=== PATIENT | female | born 1960 | race Caucasian/White ===

== ENCOUNTER 2017-08-01 17:27 | Emergency (ER) | payer BC ==
[2017-08-01] MEDS ORDERED: IPRATROPIUM/ALBUTEROL 0.5-2.5 MG/3 ML AMPUL NEB ONE (17:55)
[2017-08-01] MEDS ORDERED: PREDNISONE 20 MG TABLET PO ONE (17:56)
--- NOTE | 2017-08-01 17:58 | ER Document Report ---
ED Medical Screen (RME) - General Chief Complaint: Breathing Difficulty Stated Complaint: SHORTNESS OF BREATH Time Seen by Provider: 08/01/17 17:35 Notes: RAPID MEDICAL EVALUATION DISCLOSURE I have seen this patient as part of a Rapid Medical Evaluation and, if applicable, placed any initially appropriate orders. The patient will be seen and fully evaluated, including a full history and physical exam, by a provider ( in Main ED or Fast Track) when a room becomes available. 57-year-old female here with complaints of cough ongoing for several weeks now productive of green sputum but progressively worsening. Over the past 1 day she has had shortness of breath and chest pressure "feels like an elephant is sitting on my chest". She has a history of pneumonia and believes she may have pneumonia again. She has not had an inhaler for about a year and therefore unable to use it. EXAM Unilateral left sided minimal wheezes Mildly decreased aeration TRAVEL OUTSIDE OF THE [place] IN LAST 30 DAYS: No Past Medical History - Social History Frequency of alcohol use: Occasional Drug Abuse: None Pulmonary Medical History: Reports: Hx Asthma, Hx Pneumonia Renal/ Medical History: Denies: Hx Peritoneal Dialysis Psychiatric Medical History: Reports: Hx Depression Past Surgical History: Reports: Hx Abdominal Surgery - for reflux Physical Exam - Vital signs Vitals: Temp Pulse Resp BP Pulse Ox 98.3 F 94 22 H 139/94 H 98 08/01/17 17:31 08/01/17 17:31 08/01/17 17:31 08/01/17 17:31 08/01/17 17:31 Course - Vital Signs Vital signs: Temp Pulse Resp BP Pulse Ox 98.3 F 94 22 H 139/94 H 98 08/01/17 17:31 08/01/17 17:31 08/01/17 17:31 08/01/17 17:31 08/01/17 17:31
[2017-08-01 18:29] LABS: ABSOLUTE LYMPHOCYTES (AUTO) 1.8 10^3/uL (0.5-4.7); ABSOLUTE MONOCYTES (AUTO) 0.5 10^3/uL (0.1-1.4); BASOPHILS % (AUTO) 0.5 % (0-2); EOSINOPHILS % (AUTO) 0.2 % (0-6); HEMATOCRIT 42.2 % (36.0-47.0); HEMOGLOBIN 14.4 g/dL (12.0-15.5); LYMPHOCYTES % (AUTO) 25.2 % (13-45); MEAN CORPUSCULAR HEMOGLOBIN 29.7 pg (27.0-33.4); MEAN CORPUSCULAR HGB CONC 34.1 g/dL (32.0-36.0); MEAN CORPUSCULAR VOLUME 87 fl (80-97); MONOCYTES % (AUTO) 6.4 % (3-13); PLATELET COUNT 218 10^3/uL (150-450); RED BLOOD COUNT 4.85 10^6/uL (3.72-5.28); RED CELL DISTRIBUTION WIDTH 13.7 % (11.5-14.0); SEGMENTED NEUTROPHILS % (AUTO) 67.7 % (42-78); TOTAL CELLS COUNTED % (AUTO) 100 %; WHITE BLOOD COUNT 7.3 10^3/uL (4.0-10.5)
[2017-08-01 18:51] LABS: ANION GAP 11 (5-19); BLOOD UREA NITROGEN 19 mg/dL (7-20); CALCIUM 9.9 mg/dL (8.4-10.2); CARBON DIOXIDE 27 mmol/L (22-30); CHLORIDE 107 mmol/L (98-107); GLUCOSE 103 mg/dL (75-110); POTASSIUM 4.2 mmol/L (3.6-5.0); SODIUM 145.3 mmol/L (137-145)
[2017-08-01] MEDS ORDERED: HYDROCODONE/ACETAMINOPHEN 5-325 MG TABLET PO ONE (19:32)
[2017-08-01] MEDS ORDERED: FAMOTIDINE 20 MG TABLET PO ONE (19:32)
[2017-08-01] MEDS ORDERED: PROMETHAZINE HCL 25 MG TABLET PO ONE (19:32)
--- NOTE | 2017-08-01 19:32 | ER Document Report ---
ED Respiratory Problem - General Chief Complaint: Breathing Difficulty Stated Complaint: SHORTNESS OF BREATH Time Seen by Provider: 08/01/17 17:35 Notes: Patient is a 57-year-old female that comes emergency department for chief complaint of congestion and cough, she states she is had a worsening cough for 2 -3 weeks now, she now has started coughing up green sputum and has felt more short of breath. She was seen by her primary care several days ago, started on Flonase and allergy medication. She does have a history of asthma, ran out of her albuterol at home, she has never smoked. She does report chest soreness and she did feel chest tightness with shortness of breath earlier, she denies fever. Only past medical history reported otherwise is pneumonia once and an undetermined procedure for reflux. She states that after taking the prednisone she started feeling nauseated and she retched. TRAVEL OUTSIDE OF THE [place] IN LAST 30 DAYS: No - Related Data Allergies/Adverse Reactions: adhesive tape Allergy (Verified 08/01/17 18:06) Past Medical History - General Information source: Patient - Social History Smoking Status: Never Smoker Frequency of alcohol use: Occasional Drug Abuse: None Lives with: Family Family History: Reviewed & Not Pertinent Patient has suicidal ideation: No Patient has homicidal ideation: No Pulmonary Medical History: Reports: Hx Asthma, Hx Pneumonia Renal/ Medical History: Denies: Hx Peritoneal Dialysis Psychiatric Medical History: Reports: Hx Depression Past Surgical History: Reports: Hx Abdominal Surgery - for reflux - Immunizations Immunizations up to date: Yes Hx Diphtheria, Pertussis, Tetanus Vaccination: Yes Review of Systems - Review of Systems Constitutional: See HPI EENT: No symptoms reported Cardiovascular: No symptoms reported Respiratory: See HPI Gastrointestinal: No symptoms reported Genitourinary: No symptoms reported Female Genitourinary: No symptoms reported Musculoskeletal: No symptoms reported Skin: No symptoms reported Hematologic/Lymphatic: No symptoms reported Neurological/Psychological: No symptoms reported Physical Exam - Vital signs Vitals: Temp Pulse Resp BP Pulse Ox 98.3 F 94 22 H 139/94 H 98 08/01/17 17:31 08/01/17 17:31 08/01/17 17:31 08/01/17 17:31 08/01/17 17:31 Interpretation: Normal - General General appearance: Other - Patient with occasional congested coughing episodes , otherwise she does not appear to be in any distress - HEENT Head: Normocephalic, Atraumatic Eyes: Normal Extraocular movements intact: Yes Eyelashes: Normal Pupils: PERRL Mouth/Lips: Normal Mucous membranes: Normal Pharynx: Normal Neck: Normal - Respiratory Respiratory status: No respiratory distress. No: Respiratory distress, Labored , Retractions, Tachypnea Breath sounds: Normal, Nonproductive cough - A few scattered coarse breath sounds with nonproductive cough which is congested. No: Decreased air movement , Wheezing Chest palpation: Normal - Cardiovascular Rhythm: Regular. No: Tachycardia Heart sounds: Normal auscultation, S1 appreciated, S2 appreciated Murmur: No Normal capillary refill: Yes - Abdominal Inspection: Normal Distension: No distension Bowel sounds: Normal Tenderness: Nontender Organomegaly: No organomegaly - Back Back: Normal, Nontender - Extremities General upper extremity: Normal inspection, Nontender, Normal color, Normal ROM , Normal temperature General lower extremity: Normal inspection, Nontender, Normal color, Normal ROM , Normal temperature, Normal weight bearing. No: Fernando's sign - Neurological Neuro grossly intact: Yes Cognition: Normal Orientation: AAOx4 [place] Coma Scale Eye Opening: Spontaneous Royce Coma Scale Verbal: Oriented [place] Coma Scale Motor: Obeys Commands [place] Coma Scale Total: 15 Speech: Normal Motor strength normal: LUE, RUE, LLE, RLE Sensory: Normal - Psychological Associated symptoms: Normal affect, Normal mood - Skin Skin Temperature: Warm Skin Moisture: Dry Skin Color: Normal Course - Re-evaluation Re-evalutation: Patient clarified to me that she did have a fever, she ran it earlier today for the first time, temperature of 101. No fever here. Chest x-ray shows large hiatal hernia but no consolidation. Remaining workup including CBC, CMP, EKG, troponin but no acute findings. Vital signs are unremarkable. Patient has deep congested cough and reported fever with also occasional sputum production. No hypoxia or respiratory distress, no tachycardia. Ambulates without difficulty. Based on patient's presentation, workup, examination I have low suspicion of ACS, PE, aortic dissection. Discussed hiatal hernia, patient requests treatment for this because she frequently has abdominal upset especially after eating, providing with Nexium. Patient will be covered for suspected underlying pneumonia, discussed medications, follow-up, return precautions with patient and , they state understanding and agreement with plan. - Vital Signs Vital signs: Temp Pulse Resp BP Pulse Ox 97.8 F 98 16 122/78 96 08/01/17 21:30 08/01/17 21:30 08/01/17 21:30 08/01/17 21:30 08/01/17 21:30 - Laboratory Result Diagrams: 08/01/17 18:06 08/01/17 18:06 Laboratory results interpreted by me: 08/01/17 18:06 Sodium 145.3 H Discharge - Discharge Clinical Impression: Productive cough, Wheezing, Hiatal hernia Condition: Stable Disposition: HOME, SELF-CARE Additional Instructions: Your examination and symptoms are consistent with a bronchitis and concerning for possible developing pneumonia. We are covering you with doxycycline. We have treated you with dexamethasone, use albuterol with spacer as prescribed as well. Use Tessalon for cough if needed. You have a large hiatal hernia on x- ray, I recommend the Nexium because of your ongoing gastrointestinal symptoms. Follow-up with your primary care provider within the next 2 or 3 days for reevaluation and additional management. Return for any concerning or worsening symptoms including difficulty breathing, passing out, spiking fever, vomiting, black stools, or any other concerning or worsening symptoms. Prescriptions: Benzonatate [Tessalon Perle 100 mg Capsule] 100 mg PO Q8HP PRN #30 cap PRN Reason: Albuterol Sulfate [Proair HFA Inhalation Aerosol 8.5 gm MDI] 2 puff IH Q4H PRN # 1 mdi PRN Reason: Doxycycline Hyclate 100 mg PO BID #14 capsule Esomeprazole Mag Trihydrate [Nexium] 40 mg PO DAILY #30 capsule.dr Forms: Return to Work Referrals: CHUCK BENJAMIN PA [Primary Care Provider] - Follow up as needed
--- NOTE | 2017-08-01 20:02 | RADIOLOGY REPORT (SQ) ---
EXAM DESCRIPTION: CHEST 2 VIEWS COMPLETED DATE/TIME: 08/01/2017 7:36 pm REASON FOR STUDY: L sided wheezes cough green sputum; pneumonia? COMPARISON: None. EXAM PARAMETERS: NUMBER OF VIEWS: two views TECHNIQUE: Digital Frontal and Lateral radiographic views of the chest acquired. RADIATION DOSE: NA LIMITATIONS: none FINDINGS: LUNGS AND PLEURA: No consolidation, pneumothorax or pleural effusion. MEDIASTINUM AND HILAR STRUCTURES: No masses or contour abnormalities. HEART AND VASCULAR STRUCTURES: Heart normal size. No evidence for failure. BONES: No acute findings. HARDWARE: None in the chest. OTHER: There is a large hiatal hernia. IMPRESSION: Large hiatal hernia. Otherwise, no acute radiographic finding in the chest. TECHNICAL DOCUMENTATION: JOB ID: [id number] [employer]- All Rights Reserved Reading location - IP/workstation name: [email or web address]
[2017-08-01] MEDS ORDERED: DEXAMETHASONE SOD PHOS INJ 10 MG/1 ML VIAL IM ONE (21:13)
[2017-08-01] MEDS ORDERED: DOXYCYCLINE HYCLATE 100 MG TABLET PO ONE (21:13)
[2017-08-01] MEDS ORDERED: ALBUTEROL SULFATE HFA (90 MCG/PUFF) 8 GM MDI (1 MDI/ER DISP) IH ONE (21:14)
[2017-08-01 21:31] VITALS: BP 122/78
--- NOTE | 2017-08-01 22:08 | EKG REPORT ---
SEVERITY:- NORMAL ECG - SINUS RHYTHM : Confirmed by: Derek George MD 01-Aug-2017 22:08:15
== END 2017-08-01 21:32 | disposition home or self-care (01) ==
LOC: ER 17:27
DX: R05 Cough (principal); R06.2 Wheezing; K44.9 Diaphragmatic hernia without obstruction or gangrene; R06.00 Dyspnea, unspecified
CPT/HCPCS: 93005; 99285; 96372; 36415; 87040; 85025; 80048; 84484; 71046; 93010; J7512; J1100; J3490; J7620

== ENCOUNTER 2019-04-12 21:16 | Emergency (ER) | payer BC ==
[2019-04-12] MEDS ORDERED: OXYCODONE-ACETAMINOPHEN 5-325 MG TABLET PO ONE (22:04)
--- NOTE | 2019-04-12 22:06 | ER Document Report ---
ED Medical Screen (RME) - General Chief Complaint: Fall Stated Complaint: FALL,RIGHT SIDE BODY PAIN AND BACK PAIN Time Seen by Provider: 04/12/19 21:59 Primary Care Provider: RICO RENO DO [Primary Care Provider] - Follow up as needed Notes: HPI: 58-year-old female presenting to the emergency department with multiple injuries from mechanical fall. Patient states that she had surgery on her left Achilles and ankle region and is still rehabbing and slipped coming out of her camper on the stairs. She rolled the ankle and complains of pain to the posterior left ankle. Patient also states that she landed back on the steps, complains of low back pain and also right rib pain. Denies abdominal pain nausea vomiting. States it hurts to take a deep breath and in the right ribs I have greeted and performed a rapid initial assessment of this patient. A comprehensive ED assessment and evaluation of the patient, analysis of test results and completion of the medical decision making process will be conducted by additional ED providers PHYSICAL EXAMINATION: GENERAL: Well-appearing, well-nourished and in mild acute distress. HEAD: Atraumatic, normocephalic. EYES: sclera anicteric, conjunctiva are normal. ENT: Moist mucous membranes. NECK: Normal range of motion LUNGS: Normal work of breathing, lung sounds clear to auscultation. No visible bruising on the right lateral chest wall. No crepitus. No flail. Mild tenderness through the right lateral rib cage region on palpation HEART: 2+ radial pulses bilaterally, regular rate and rhythm ABD: limited by positioning for exam in triage. No abdominal pain in the right upper quadrant right flank on palpation BACK: Mild tenderness in the lower lumbar back on palpation without palpable step-off EXTREMITIES: no pitting or edema. No cyanosis. NEUROLOGICAL: No focal neurological deficits. Moves all extremities spontaneously and on command. PSYCH: Normal mood, normal affect. SKIN: Warm, Dry, normal turgor, no rashes or lesions noted. TRAVEL OUTSIDE OF THE [place] IN LAST 30 DAYS: No - Related Data Allergies/Adverse Reactions: adhesive tape Allergy (Verified 04/12/19 21:58) latex Allergy (Verified 04/12/19 21:58) Past Medical History - Social History Frequency of alcohol use: Social Pulmonary Medical History: Reports: Hx Asthma, Hx Pneumonia Renal/ Medical History: Denies: Hx Peritoneal Dialysis Psychiatric Medical History: Reports: Hx Depression Past Surgical History: Reports: Hx Abdominal Surgery - for reflux - Immunizations Immunizations up to date: Yes Hx Diphtheria, Pertussis, Tetanus Vaccination: Yes Physical Exam - Vital signs Vitals: Temp Pulse Resp BP Pulse Ox 97.9 F 87 16 141/81 H 98 04/12/19 21:30 04/12/19 21:30 04/12/19 21:30 04/12/19 21:30 04/12/19 21:30 Course - Vital Signs Vital signs: Temp Pulse Resp BP Pulse Ox 97.9 F 87 16 141/81 H 98 04/12/19 21:30 04/12/19 21:30 04/12/19 21:30 04/12/19 21:30 04/12/19 21:30 Doctor's Discharge - Discharge Referrals: RICO RENO DO [Primary Care Provider] - Follow up as needed
--- NOTE | 2019-04-12 23:22 | RADIOLOGY REPORT (SQ) ---
EXAM DESCRIPTION: XR RIBS UNILATERAL WITH CHEST COMPLETED DATE/TME: 04/12/2019 22:03 CLINICAL HISTORY: 58 years Female fall COMPARISON: None. FINDINGS: The cardiomediastinal silhouette appears unremarkable. No consolidating infiltrates or pleural effusions. No pneumothorax. Large hiatal hernia. Irregularity of the anterior fifth and sixth ribs suggesting fractures. No pleural thickening. IMPRESSION: Fractures of the anterior right fifth and sixth ribs without pneumothorax Large hiatal hernia
--- NOTE | 2019-04-12 23:24 | RADIOLOGY REPORT (SQ) ---
EXAM DESCRIPTION: XR LUMBAR SPINE ANTEROPOSTERIOR, LATERAL, AND OBLIQUES COMPLETED DATE/TME: 04/12/2019 22:04 CLINICAL HISTORY: 58 years, Female, fall COMPARISON: None. NUMBER OF VIEWS: 5 TECHNIQUE: 5 view lumbar spine LIMITATIONS: None. FINDINGS: Osteopenia. Vertebral body height and alignment is preserved. There are no pars defects. Mild facet arthropathy L3-4, L4-5, L5-S1. Mild degenerative change of the sacroiliac joints IMPRESSION: Osteopenia. Mild degenerative change copyright 2010 [employer]- All Rights Reserved
--- NOTE | 2019-04-12 23:26 | RADIOLOGY REPORT (SQ) ---
EXAM DESCRIPTION: Three views of the left ankle CLINICAL HISTORY: 58 years Female, fall COMPARISON: None. FINDINGS: Alignment of the ankle is anatomic. No fracture is seen. No erosions or periostitis. There is postsurgical change seen along the dorsal aspect of the calcaneus. Soft tissues are prominent. IMPRESSION: No acute process
[2019-04-13] MEDS ORDERED: PROMETHAZINE HCL INJ 25 MG/1 ML VIAL IM ONE (00:12)
[2019-04-13] MEDS ORDERED: KETOROLAC TROMETHAMINE 60 MG/2 ML SDV IM ONE (00:33)
--- NOTE | 2019-04-13 01:16 | ER Document Report ---
ED General - General Chief Complaint: Fall Stated Complaint: FALL,RIGHT SIDE BODY PAIN AND BACK PAIN Time Seen by Provider: 04/12/19 21:59 Primary Care Provider: LEXUS WEAVER MD [ACTIVE PROVISIONAL STAFF] - Follow up as needed RICO RENO DO [Primary Care Provider] - Follow up as needed TRAVEL OUTSIDE OF THE [place] IN LAST 30 DAYS: No - HPI Notes: Ms. fofana is a 58-year-old female with a chief complaint of fall with multiple injuries. 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 She is continued to have quite a lot of trouble with this and has not been able to return to work. She is scheduled to see an orthopedist sometime in the next 3 months for reevaluation apparently there have been issues about Workmen's Comp. expressing unwillingness to provide further funding for this injury. Patient says she was with her two daughters this evening and they were eating pizza on disposable plates while sitting in a camper. She attempted to exit the camper to dispose of her plate when she lost her footing and twisted the affected left ankle and fell against some items which were outside the door the camper striking her right ribs and also falling onto her lower back area. There was no loss of consciousness. She denies neck pain. Symptoms at this time include severe right rib pain, left ankle pain and lower back pain. - Related Data Allergies/Adverse Reactions: adhesive tape Allergy (Verified 04/12/19 21:58) latex Allergy (Verified 04/12/19 21:58) Past Medical History - General Information source: Patient - Social History Smoking Status: Never Smoker Frequency of alcohol use: Social Family History: Reviewed & Not Pertinent Patient has suicidal ideation: No Patient has homicidal ideation: No Pulmonary Medical History: Reports: Hx Asthma, Hx Pneumonia Renal/ Medical History: Denies: Hx Peritoneal Dialysis Psychiatric Medical History: Reports: Hx Depression Past Surgical History: Reports: Hx Abdominal Surgery - for reflux - Immunizations Immunizations up to date: Yes Hx Diphtheria, Pertussis, Tetanus Vaccination: Yes Review of Systems - Review of Systems Notes: Constitutional: Negative for fever. HENT: Negative for sore throat. Eyes: Negative for visual changes. Cardiovascular: Negative for chest pain. Respiratory: Negative for shortness of breath. Gastrointestinal: Negative for abdominal pain, vomiting or diarrhea. Genitourinary: Negative for dysuria. Musculoskeletal: As per HPI. Skin: Negative for rash. Neurological: Negative for headaches, weakness or numbness. 10 point ROS negative except as marked above and in HPI. Physical Exam - Vital signs Vitals: Temp Pulse Resp BP Pulse Ox 97.9 F 87 16 141/81 H 98 04/12/19 21:30 04/12/19 21:30 04/12/19 21:30 04/12/19 21:30 04/12/19 21:30 - Notes Notes: GENERAL: Female patient approximately stated age who appears quite uncomfortable holding right rib area. She also has her left ankle propped up on a pillow. SKIN: Good turgor no rashes. HEAD: Normocephalic atraumatic. EYES: PERRLA. EOMI. Conjunctivae and sclerae clear. EARS: CANALS AND TMS CLEAR. NOSE: CLEAR. MOUTH: Moist mucosa. Good dentition. No stridor or edema. No drooling. NECK: Supple. No masses or thyromegaly. No adenopathy. Carotids 2+ without bruits. No JVD. BACK: Symmetrical with mild tenderness in lumbar area. No step-off or crepitus.. CHEST: Tender over lower posterior lateral rib area on the right. Respirations unlabored. Breath sounds clear and symmetrical. HEART: Regular rhythm. No murmur gallop or rub. ABDOMEN: Soft nontender without masses, organomegaly or rebound. Bowel sounds normally active. No bruits. GENITALIA: Deferred. EXTREMITIES: Patient has a healed surgical scar posteriorly over the left Achilles tendon. There is no palpable discontinuity. Davis test is normal. There is no obvious bony deformity or crepitus present and no visible ecchymoses. Mild soft tissue swelling posterior aspect of the ankle.. No calf tenderness. Cap refill less than 1.5 seconds. Dorsalis pedis and posterior tibial pulses 3+ and symmetrical. NEUROLOGICAL: GCS 15. Alert and oriented x3. Fluent speech. Cranial nerves II through XII intact. Sensorimotor and cerebellar normal. Normal tone. PSYCHIATRIC: Appropriate affect. Course - Re-evaluation Re-evalutation: 04/13/19 01:21 Patient received IM Toradol and oral Percocet and also some IM Phenergan. Ankle steerable applied on the left. I recommended that she get a walker tomorrow. Her daughters will transport her home tonight. We are going to refer her to orthopedist recreation manager for follow-up. - Vital Signs Vital signs: Temp Pulse Resp BP Pulse Ox 97.9 F 87 16 141/81 H 98 04/12/19 21:30 04/12/19 21:30 04/12/19 21:30 04/12/19 21:30 04/12/19 21:30 - Diagnostic Test Radiology reviewed: Reports reviewed - Radiologist reports fracture of right fifth and sixth ribs. No pneumothorax or hemothorax. Patient has a large hiatal hernia. She has osteoporotic changes of lumbar spine without fracture. There is no fracture left ankle. Discharge - Discharge Clinical Impression: Contusion low back Right rib fracture Qualifiers: Encounter type: initial encounter Rib fracture type: multiple ribs Fracture type: closed Qualified Code(s): S22.41XA - Multiple fractures of ribs, right side, initial encounter for closed fracture Sprain of ankle, left Qualifiers: Encounter type: initial encounter Involved ligament of ankle: unspecified ligament Qualified Code(s): S93.402A - Sprain of unspecified ligament of left ankle, initial encounter Fall Qualifiers: Encounter type: initial encounter Qualified Code(s): W19.XXXA - Unspecified fall, initial encounter Condition: Stable Disposition: HOME, SELF-CARE Instructions: Ice Packs ([facility]), Splint Precautions ([facility]), Sprained Ankle ([facility]) Additional Instructions: Rib Injuries and Fractures You have been diagnosed as having either bruised or broken ribs. These two injuries are treated in the same way. It will usually take four to six weeks for these injured ribs to heal. Sometimes, rib belts or anesthetic injections of the chest wall help reduce the pain. If you are using a rib belt, you should cough or take a deep breath at least every hour or two to prevent lung complications. You should not engage in any strenuous physical activity until released by your physician. The usual rule is "if it hurts, don't do it." Rib fractures can lead to serious lung complications including lung collapse, hemorrhage, and pneumonia. You should call the physician or return at once if any of the following occur: (1) Fever or chills. (2) Persistent cough, coughing up blood, or shortness of breath. (3) Increasing pain. (4) Weakness, lightheadedness, or fainting. Use a walker to assist ambulation. I am providing you the name of an fire fighting equipment specialist for follow-up. Prescriptions: Tramadol HCl [Ultram 50 mg Tablet] 50 mg PO Q4HP PRN #12 tab PRN Reason: Ketorolac Tromethamine [Toradol 10 mg Tablet] 10 mg PO Q6HP PRN 10 Days #20 tablet PRN Reason: Promethazine HCl [Phenergan 25 mg Tablet] 1 - 2 tab PO Q6H PRN #15 tablet PRN Reason: Referrals: RICO RENO DO [Primary Care Provider] - Follow up as needed LEXUS WEAVER MD [ACTIVE PROVISIONAL STAFF] - Follow up as needed
[2019-04-13 01:59] VITALS: BP 119/68
== END 2019-04-13 02:02 | disposition home or self-care (01) ==
LOC: ER 21:16
DX: S22.41XA Multiple fractures of ribs, right side, initial encounter for closed fracture (principal); S30.0XXA Contusion of lower back and pelvis, initial encounter; S93.402A Sprain of unspecified ligament of left ankle, initial encounter; W10.8XXA Fall (on) (from) other stairs and steps, initial encounter; W22.8XXA Striking against or struck by other objects, initial encounter; Y93.89 Activity, other specified; K44.9 Diaphragmatic hernia without obstruction or gangrene; J45.909 Unspecified asthma, uncomplicated; Z91.048 Other nonmedicinal substance allergy status; Z91.040 Latex allergy status
CPT/HCPCS: 99283; 96374; 96375; 73610; 72110; 71101; L4350; J1885; J2550